=== PATIENT | male | born 1975 | race Hispanic/Latino ===

== ENCOUNTER → 2019-09-08 | Day surgery (SDC) | payer BC ==
[2019-09-05 11:37] LABS: BASOPHILS % 0.6 % (0.0-1.0); EOSINOPHILS # (AUTO) 0.1 (0.0-0.4); HEMATOCRIT 46.5 % (38.2-49.6); HEMOGLOBIN 16.4 g/dL (14.0-18.0); LYMPHOCYTES # (AUTO) 1.7 (1.0-3.2); LYMPHOCYTES % 34.3 % (18.0-39.1); MEAN CORPUSCULAR HEMOGLOBIN 31.6 pg (28-32); MEAN CORPUSCULAR HGB CONC 35.3 g/dL (31-35); MEAN CORPUSCULAR VOLUME 89.6 fL (81-99); MONOCYTES # (AUTO) 0.5 (0.2-0.8); MONOCYTES % 10.1 % (4.4-11.3); NEUTROPHILS # (AUTO) 2.6 (2.1-6.9); NEUTROPHILS % 52.8 % (38.7-80.0); PLATELET COUNT 242 x10e3/uL (140-360); RED BLOOD COUNT 5.19 x10e6/uL (4.3-5.7); RED CELL DISTRIBUTION WIDTH 11.9 % (11.7-14.4)
[2019-09-05 11:57] LABS: INR 0.99; PROTHROMBIN TIME 13.6 seconds (11.9-14.5)
[2019-09-05 11:58] LABS: PARTIAL THROMBOPLASTIN TIME 32.4 seconds (23.8-35.5)
[2019-09-05 12:10] LABS: ALANINE AMINOTRANSFERASE 27 IU/L (0-55); ALBUMIN 4.1 g/dL (3.5-5.0); ALBUMIN/GLOBULIN RATIO 1.4 (0.8-2.0); ALKALINE PHOSPHATASE 59 IU/L (40-150); ANION GAP 12.1 mmol/L (8-16); BLOOD UREA NITROGEN 12 mg/dL (7-26); BUN/CREATININE RATIO 15 (6-25); CALCIUM 9.4 mg/dL (8.4-10.2); CARBON DIOXIDE 27 mmol/L (22-29); CHLORIDE 102 mmol/L (98-107); CREATININE, SERUM 0.81 mg/dL (0.72-1.25); EST GLOMERULAR FILTRATION RATE > 60 ML/MIN (60-); GLUCOSE 105 mg/dL (74-118); POTASSIUM 4.1 mmol/L (3.5-5.1); SODIUM 137 mmol/L (136-145)
[2019-09-05 12:47] LABS: CHOL/HDL RATIO 3.8 (3.9-4.7)
[2019-09-08] VITALS (21 sets, daily range): BP systolic 102–137; BP diastolic 57–80
[~2019-09-08] VITALS: Ht 162.6 cm; Wt 83.9 kg
[~2019-09-08] MED LIST: ASPIR 8181 MG PO; ASPIRIN 81 MG CHEW TAB ONE; FENTANYL CITRATE/PF 100MCG/2 ML INJ ONE; HEPARIN SOD (PORCINE) 1000 UNIT/ML 30ML ONE; HEPARIN SOD/SOD CHLORIDE 2,000 ML ONE; IOPAMIDOL 370 MG/ML 200 ML INFUS..BTL INJ ONE; LIDOCAINE HCL 2% LOCAL 20 ML VIAL ONE; LOSARTAN POTASS25 MG PO; MIDAZOLAM HCL 2 MG/2 ML VIAL ONE; NITROGLYCERIN/D5W 200 MCG/ML 250 ML ONE; SODIUM CHLORIDE 0.9% 1000ML 1,000 ML ONE; TICAGRELOR 90 MG TABLET ONE; VERAPAMIL HCL 2.5 MG/ML 2 ML VIAL ONE
--- NOTE | 2019-09-08 11:58 | Operative Report ---
DATE OF PROCEDURE: 09/08/2019 SURGEON: Vidal Donato MD STUDY: Cardiac catheterization PROCEDURE INDICATION: Angina pectoris, stable with abnormal stress test. PROCEDURES PERFORMED: 1. Left heart catheterization. 2. Selective coronary angiography. 3. LAD drug-eluting stent PCI. 4. Right radial TR band hemostasis. PROCEDURE COMPLICATIONS: None. ESTIMATED BLOOD LOSS: Less than 15 mL. PROCEDURE SUMMARY: After consent was obtained, the patient was prepped and draped in a sterile fashion. The right radial site was locally infiltrated with 2% lidocaine and access was obtained with a single anterior stick. A 5-Gib[place] outer diameter slender sheath was advanced. A 5-[place] TIG catheter was used for engagement of left main in the indication of the right coronary artery and aortic valve was crossed for hemodynamic measurements. XB LAD 3.5 no side-holes guide catheter, 6-Gib[place]tarian in diameter was used for the intervention along with a run-through wire to cross the LAD in position. The distal epical LAD predilatation performed with 2.5 x 8 [employer] emerge balloon to 12 atmospheres followed by Resolute [place] 2.5 x 12 drug-eluting stent deployed to 16 atmospheres post dilated with 2.5 x 8 NC [employer] and 2.75 x 12 NC Quantum to 18 atmospheres. Final angiography reveals VENUS-3 flow, 0% residual stenosis. No flow-limiting dissections. No perforations. Excellent angiographic results. Following findings were noted: 1. LV pressure is 108/3 with end-diastolic pressure of 26. 2. Aortic pressure is 107/65. 3. Left main is large in caliber with luminal irregularities gives an LAD and circumflex. 4. The LAD gives high take of 1st diagonal that is small in caliber, 100% occluded. Distal most segment of this vessel is filling via collaterals from left system. 5. The LAD in the mid segment after giving 1st diagonal has 80% focal stenosis was a target lesion that was treated with PCI as described above. Additional diagonals and septal perforators arises from this LAD with otherwise luminal irregularities throughout the rest of its course. 6. The circumflex has high take of small caliber 1st obtuse marginal and a medium caliber 2nd obtuse marginal. Luminal irregularities are noted throughout this vessel and its branches. 7. The right coronary artery is dominant with luminal irregularities gives a conus branch proximally. RV marginal mid segment and a terminal RPDA and RPLV of small to medium of medium caliber. CONCLUSION: Drug-eluting stent PCI of the mid LAD. RECOMMENDATIONS: Aspirin and Brilinta. Of note heparin was provided throughout the procedure for an ACT over 250, Brilinta loading was 180 and aspirin 325 mg loading. Additional treatment with aspirin 81 mg daily, Brilinta 90 mg every 12 hours, atorvastatin to up titrate to highest potency tolerated and continue aggressive risk factor optimization for coronary artery disease. Vidal Donato MD AFV/MODL /[id number]
== END | disposition home or self-care (01) ==
LOC: CATH LAB 06:22
PROVIDERS: ATTEND Internal Medicine Cardiovascular Disease
DX: I25.118 Atherosclerotic heart disease of native coronary artery with other forms of angina pectoris (principal); I25.82 Chronic total occlusion of coronary artery; R94.39 Abnormal result of other cardiovascular function study; I10 Essential (primary) hypertension; E66.01 Morbid (severe) obesity due to excess calories; Z01.810 Encounter for preprocedural cardiovascular examination; Z01.812 Encounter for preprocedural laboratory examination; Z79.82 Long term (current) use of aspirin; Z68.33 Body mass index [BMI] 33.0-33.9, adult; Z87.891 Personal history of nicotine dependence; Z82.49 Family history of ischemic heart disease and other diseases of the circulatory system
CPT/HCPCS: 36415; 80053; 80061; 83036; 85025; 85610; 85730; 92928; 93005; 93458; C1725 ×3; C1874; C1887; J1644; J2001; J2250; J3010; J7030; Q9967; 99152